=== PATIENT | female | born 1965 | race Caucasian/White ===

== ENCOUNTER 2016-11-09 13:11 | Emergency (ER) | payer MEDICAID, OTHER ==
[~2016-11-09] VITALS: Ht 160 cm; Wt 67.5 kg
[2016-11-09 13:13] VITALS: Ht 160 cm; Wt 67.5 kg
[2016-11-09] MEDS ORDERED: ONDANSETRON (ODT) 4 MG TAB ODT STA (13:53)
[2016-11-09] MEDS ORDERED: ACETAMINOPHEN 500 MG TAB PO STA (13:53)
--- NOTE | 2016-11-09 14:08 | ERD ---
ER Documentation Chief Complaint Date/Time DATE: 11/09/16 TIME: 14:06 Chief Complaint NON PRODUCTIVE COUGH; HEADACHE; DENIES FEVER HPI This a 51-year-old female who presents to the emergency department today complaining of dry cough, headache and nausea and vomiting that started yesterday. States that she " does not feel well". States her body feels chilled and is unsure if she has had a fever. Denies any dysuria. States she has not taken any medication for her headache because she threw it up. ROS All systems reviewed and are negative except as per history of present illness. Medications Home Meds Active Scripts Guaifenesin-Dextromethorphan* (Robitussin* DM) 100MG/10MG/5ML Syrup, 10 ML PO Q4H Y for COUGH for 5 Days, ML Prov:MICHEAL BENNETT PA-C 11/09/16 Ondansetron Hcl* (Zofran*) 4 Mg Tablet, 4 MG PO Q6H for NAUSEA AND/OR VOMITING, #30 TAB Prov:MICHEAL BENNETT PA-C 11/09/16 Allergies Allergies: Coded Allergies: No Known Allergy (Verified Allergy, Unknown, 06/16/09) PMhx/Soc Medical and Surgical Hx: pt denies Medical Hx, pt denies Surgical Hx Hx Alcohol Use: No Hx Substance Use: No Hx Tobacco Use: No Smoking Status: Never smoker Physical Exam Vitals Vital Signs Date Time Temp Pulse Resp B/P Pulse Ox O2 Delivery O2 Flow Rate FiO2 11/09/16 13:13 97.7 84 151 151/100 94 Physical Exam Const: Nontoxic-appearing Head: Atraumatic Eyes: Normal Conjunctiva ENT: Normal External Ears, Nose and Mouth. Neck: Full range of motion..~ No meningismus. Resp: Clear to auscultation bilaterally Cardio: Regular rate and rhythm, no murmurs Abd: Soft, non tender, non distended. Normal bowel sounds Skin: No petechiae or rashes Back: No midline or flank tenderness Ext: No cyanosis, or edema Neur: Awake and alert Psych: Normal Mood and Affect Results 24 hrs Current Medications Medications (Trade) Dose Ordered Sig/Ronalod Route PRN Reason Start Time Stop Time Status Last Admin Dose Admin Ondansetron HCl (Zofran Odt) 4 mg ONCE STAT ODT 11/09/16 13:53 11/09/16 13:55 DC 11/09/16 14:01 Acetaminophen (Tylenol Tab) 500 mg ONCE STAT PO 11/09/16 13:53 11/09/16 13:55 DC 11/09/16 14:01 DIAGNOSTIC IMAGING REPORT Patient: ZAIRA TAYLOR : 1965 Age: 51 Sex: F MR #: [id number] DOS: 11/09/16 0000 Ordering MD: MICHEAL BENNETT PA-C Location: E Room/Bed: PROCEDURE: XR Chest. CLINICAL INDICATION: chest pain, cough TECHNIQUE: Single frontal view of the chest was obtained COMPARISON: 06/29/2009 FINDINGS: The heart and mediastinum are within normal limits. There is a left lower lobe calcified granuloma. The lungs are otherwise clear. There is no pleural effusion or pneumothorax. RPTAT: AA IMPRESSION: Left lower lobe calcified granuloma. .Donta Jarvis MD MD Date Time Electronically viewed and signed by .Donta Jarvis MD, MD on 11/09/2016 14: 32 .S/ CC: MICHEAL BENNETT PA-C Procedures/MDM This 51-year-old female who presents to the emergency department today with flulike symptoms however given patient's age and complaint of cough I did obtain a chest x-ray Chest x-ray shows a left lower lobe calcified granuloma. There is no pleural effusion or pneumothorax. Lungs are otherwise clear. Low suspicion for pneumonia, PE, abscess, pleural effusion, pneumothorax Patient was given Tylenol and Zofran here in the emergency department and passed a p.o. challenge. Patient stated her headache was better I will give her prescription for Tylenol, Motrin, Zofran and Robitussin for home. Patient is afebrile and otherwise well-appearing. Do not feel that she requires antibiotics or Tamiflu at this time. I have low suspicion for strep pharyngitis, peritonsillar abscess, retropharyngeal abscess, otitis media, PNA, sinusitis, abscess, meningitis, sepsis, or other acute infectious bacterial process. At this time the patient is stable for discharge and outpatient management. They should follow up with their PCP in the next 1-2. They may return to the emergency department sooner if symptoms persist or worsen. Patient an son understood and agreed with the plan. Departure Diagnosis: Primary Impression: Influenza-like symptoms Condition: MICHEAL Lucero PA-C Nov 09, 2016 14:08
--- NOTE | 2016-11-09 14:32 | RADRPT ---
PROCEDURE: XR Chest. CLINICAL INDICATION: chest pain, cough TECHNIQUE: Single frontal view of the chest was obtained COMPARISON: 06/29/2009 FINDINGS: The heart and mediastinum are within normal limits. There is a left lower lobe calcified granuloma. The lungs are otherwise clear. There is no pleural effusion or pneumothorax. RPTAT: AA IMPRESSION: Left lower lobe calcified granuloma. .Donta Jarvis MD, MD Date Time Electronically viewed and signed by .Donta Jarvis MD, on 11/09/2016 14:32 .S/
[2016-11-09] MEDS ORDERED: ONDA4TAB8 PO (15:38)
[2016-11-09] MEDS ORDERED: UDROBDM PO (15:38)
[2016-11-09 16:00] VITALS: BP 132/90; PULSE 76; RESP 18
== END 2016-11-09 16:11 | disposition home or self-care (01) ==
LOC: FTE 13:11
DX: R05 Cough (principal); R51 Headache; R11.2 Nausea with vomiting, unspecified
CPT/HCPCS: 71010; Z7610